=== PATIENT | male | born 1950 | race Caucasian/White ===

== ENCOUNTER → 2022-09-10 | Outpatient (CLI) | payer MEDICARE, OTHER, SELFPAY ==
--- NOTE | 2022-09-10 07:30 | MRI_ITS ---
STUDY: MR PELVIS WITH T WITHOUT CONTRAST REASON FOR EXAM: Male, 72 years old. NODULAR PROSTATE TECHNIQUE: Standardized fat and water weighted pulse sequences were obtained in all 3 orthogonal planes, pre-and post contrast administration. IV 18mL Clariscan was administered for the contrast portion of the examination. COMPARISON: None. FINDINGS: Enlarged prostate 5.65 cm transverse by 5.74 cm AP by 5.18 cm craniocaudal. Within the right posterior central zone on series 10 image 28 there is a nodule visualized with low signal at its periphery and some contrast enhancement at its right lateral aspect. This nodule measures 2.28 cm. Further caudally and anteriorly within the central zone in the midline there is an enhancing nodule measuring 0.71 cm transverse. There is diffuse hypertrophy of the peripheral zone. There is a nodule within the peripheral zone seen on the left on series 10 image #30. This enhancing nodule measures 0.88 cm. Capsule appears intact. Normal urinary bladder. Normal visualized small intestine. Normal visualized colon. There is no pelvic fluid. There is no pelvic mass lesion or lymphadenopathy. Normal visualized pelvic arteries. Normal osseous structures. Normal abdominal wall. MRI/Pelvis W/WO Contrast IMPRESSION: Enlarged prostate detailed above. There are 3 nodules within the prostate detailed above. If biopsy is performed attention towards the aforementioned nodules is advised if clinically warranted. Electronically Signed: Jason Watt MD, YAZMIN at 9:47 EDT ,
[2022-09-10 07:51] LABS: CREATININE FINGERSTICK 1.4 mg/dL (0.70-1.30)
== END | disposition home or self-care (01) ==
LOC: MRI 07:04
PROVIDERS: Referring Provider Urology; Visit Provider Urology
DX: N40.2 Nodular prostate without lower urinary tract symptoms (principal)
CPT/HCPCS: 72197; A9575